=== PATIENT | male | born 1970 | race Caucasian/White ===

== ENCOUNTER → 2017-10-25 09:52 | Outpatient (POV) | payer BC, SELFPAY ==
[2017-10-25 10:00] VITALS: BP 147/99; PULSE 123; RESP 20; BMI 32.1
--- NOTE | 2017-10-25 10:33 | HMH.PAINSOAP ---
[facility] Pain Management SOAP Note Subjective:: Patient is a 46-year-old white male who comes to our clinic to discuss medication refills and upcoming DRG trial. Patient has been in previous pain management with Dr. Vazquez. He has had multiple RFAs in the past with good success. He would like to also discuss having an RFA too. Patient states he cannot take anti-inflammatories due to gastric upset. Patient states the majority of his pain is in his left knee. He is stating also that his back pain has begun to return. Patient rates his pain a 6 out of 10 today. Patient had several questions about the DRG trial. Patient has had psychological evaluation and deemed appropriate for this therapy. Patient has had surgery on the left knee in the past and has completed physical therapy. He is also here to discuss medication refills. Patient states that the medication may not be as effective as it used to. He was wondering if it needed to be changed. Patient still gets 50% relief from his medication at this time. ROS General: no recent weight change, no fever Respiratory: no cough, no shortness of air, no recurring pulmonary infections Cardiovascular/Peripheral Vascular: No chest pain, No palpitations, no edema, no shortness of breath. Gastrointestinal: no incontinence, normal bowel movements reported Genitourinary: no incontinence Musculoskeletal: Lumbar back pain, left knee pain Psychiatric: normal mood/ affect Neurological: [denies weakness in extremities], [denies balance issues] Objective:: Physical Exam General: Alert and oriented x3, no acute distress, pleasant and cooperative, [on room air] Lungs: Resps E/U, Symmetrical chest expansion, Musculoskeletal: Flexion and extension of lumbar spine somewhat guarded secondary to pain, deep tendon reflexes normal, strength in upper and lower extremities [5/5], [abnormal gait noted] Neurological: speech clear, warp tier equal, no gross sensory deficits Assessment:: CRPS type I left knee, 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 After this we can discuss the possibility of an RFA in the future. He has done well with them in the past. Patient did bring up the fact that he feels the pain medication is not as effective as it used to be. I say we would make any medication changes until after his DRG trial. Patient is taking oxycodone 10 mg 1 p.o. 4 times daily. We will give him 1 month refill I discussed this with Dr. Rivas and he has reviewed the chart and feels this is appropriate. We will also send the patient for a urine drug screen today. His last one was negative which was appropriate at the time. Patient's Ama #[id number] reviewed and appropriate. I believe about everything that the DRG will give him more long-term relief of his left knee pain. It will make him more functional. Patient has tried and failed anti-inflammatories, physical therapy, medications. Patient has been prescribed a controlled substance after being counseled on the medication, medication safety, and possible side effects. NATASHA report has been obtained and reviewed prior to prescription and found to be appropriate. Opioid contract was reviewed and signed by the patient, and that they have agreed to all of the terms set forth by our compliance program. Note was dictated using voice recognition software may contain errors or omissions
--- NOTE | 2017-10-25 10:37 | P.CONS_ITS ---
[facility] Pain Management SOAP Note Subjective:: Patient is a 46-year-old white male who comes to our clinic to discuss medication refills and upcoming DRG trial. Patient has been in previous pain management with Dr. Vazquez. He has had multiple RFAs in the past with good success. He would like to also discuss having an RFA too. Patient states he cannot take anti-inflammatories due to gastric upset. Patient states the majority of his pain is in his left knee. He is stating also that his back pain has begun to return. Patient rates his pain a 6 out of 10 today. Patient had several questions about the DRG trial. Patient has had psychological evaluation and deemed appropriate for this therapy. Patient has had surgery on the left knee in the past and has completed physical therapy. He is also here to discuss medication refills. Patient states that the medication may not be as effective as it used to. He was wondering if it needed to be changed. Patient still gets 50% relief from his medication at this time. ROS General: no recent weight change, no fever Respiratory: no cough, no shortness of air, no recurring pulmonary infections Cardiovascular/Peripheral Vascular: No chest pain, No palpitations, no edema, no shortness of breath. Gastrointestinal: no incontinence, normal bowel movements reported Genitourinary: no incontinence Musculoskeletal: Lumbar back pain, left knee pain Psychiatric: normal mood/ affect Neurological: [denies weakness in extremities], [denies balance issues] Objective:: Physical Exam General: Alert and oriented x3, no acute distress, pleasant and cooperative, [ on room air] Lungs: Resps E/U, Symmetrical chest expansion, Musculoskeletal: Flexion and extension of lumbar spine somewhat guarded secondary to pain, deep tendon reflexes normal, strength in upper and lower extremities [5/5], [abnormal gait noted] Neurological: speech clear, inside sales territory manager equal, no gross sensory deficits Assessment:: CRPS type I left knee, 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 After this we can discuss the possibility of an RFA in the future. He has done well with them in the past. Patient did bring up the fact that he feels the pain medication is not as effective as it used to be. I say we would make any medication changes until after his DRG trial. Patient is taking oxycodone 10 mg 1 p.o. 4 times daily. We will give him 1 month refill I discussed this with Dr. Rivas and he has reviewed the chart and feels this is appropriate. We will also send the patient for a urine drug screen today. His last one was negative which was appropriate at the time. Patient's [place] #[id number] reviewed and appropriate. I believe about everything that the DRG will give him more long-term relief of his left knee pain. It will make him more functional. Patient has tried and failed anti-inflammatories, physical therapy, medications. Patient has been prescribed a controlled substance after being counseled on the medication, medication safety, and possible side effects. NATASHA report has been obtained and reviewed prior to prescription and found to be appropriate. Opioid contract was reviewed and signed by the patient, and that they have agreed to all of the terms set forth by our compliance program. Note was dictated using voice recognition software may contain errors or omissions
[2017-10-25 13:27] LABS: Amphetamine/Metha Screen,Urine Negative ng/mL (<1000); Barbiturates Screen,Urine Negative ng/mL (<200); Benzodiazepines Screen,Urine Positive ng/mL (200); Cannabinoid Screen,Urine Negative ng/mL (<50); Cocaine Screen,Urine Negative ng/g (<300); Methadone Screen,Urine Negative ng/mL (<300); Opiate Screen,Urine Positive ng/mL (<300); Phencyclidine Screen,Urine Negative ng/mL (<25)
[2017-10-28 13:12] LABS: Opiates Negative (Cutoff=100); Oxycodone (GC/MS) 5583 ng/mL (Cutoff=100)
[2017-10-29 06:25] LABS: Oxymorphone (GC/MS) 1117 ng/mL (Cutoff=100)
== END ==
PROVIDERS: Family Provider Family Medicine; PCP Family Medicine; Visit Provider Clinical Nurse Specialist Family Health
DX: M25.562 Pain in left knee (principal)
CPT/HCPCS: 99212; 80305; 80361; 80365; G0480

== ENCOUNTER 2017-11-17 10:22 | Day surgery (SDC) | payer BC, SELFPAY ==
[2017-11-16 11:48] VITALS: BMI 34.7
[2017-11-17] VITALS (9 sets, daily range): BP systolic 99–156; BP diastolic 60–95; PULSE 71–92; RESP 16–20; TEMP 36.2–36.6; O2SAT 95–97
[2017-11-17 11:05] LABS: Basophils % 0.4 % (0.1-2.0); Eosinophils # 0.1 K/mm3 (0.0-0.4); Eosinophils % 1.7 % (0.1-12.0); Hematocrit 49.8 % (42.0-52.0); Hemoglobin 16.7 g/dL (14.1-18.0); Lymphocytes # 2.2 K/mm3 (0.7-4.5); Lymphocytes % 31.4 K/mm3 (10-50); Mean Corpuscular HGB Conc 33.5 g/dL (31.8-35.4); Mean Corpuscular Hemoglobin 29.6 pg (27.0-31.2); Mean Corpuscular Volume 88.2 fl (80-94); Mean Platelet Volume 7.3 fl (7.4-10.4); Monocytes # 0.5 K/mm3 (0.1-1.0); Monocytes % 7.4 % (1.7-9.3); Neutrophils # 4.2 K/mm3 (1.8-7.8); Neutrophils % 59.2 % (37.0-80.0); Platelet Count 268 K/mm3 (142-424); Red Blood Count 5.65 M/mm3 (4.60-6.20); Red Cell Distribution Width 13.9 % (11.5-17.5); White Blood Count 7.1 K/mm3 (4.8-10.8)
[2017-11-17 11:12] LABS: Blood Urea Nitrogen 13 mg/dL (7-18); Carbon Dioxide 30 mmol/L (21.0-32.0); Chloride 98 mmol/L (98-107); Creatinine Clearance Estimated 127 mL/min (0-300); Creatinine,Serum 1.15 mg/dL (0.70-1.30); Estimated Glomerular Filt Rate 68 ml/min (>60); GFR (African American) 82 ML/MIN (>60); Glucose 110 mg/dL (74-106); Sodium 138 mmol/L (136-145)
--- NOTE | 2017-11-17 12:29 | P.PN_ITS ---
[facility] Anesthesia Checklist - Patient Identification Patient Identification: Arm Band, Verbal (Name & ) - Structural Data Admitted From: Home Planned Operative Procedure/s: pain pump trial Consent for Planned Operative Procedure(s) Verified: Yes Verified Documents: Surgical Consent - Chart Verification Results Verified: CBC, BMP - Additional verifications Patient : No Anesthesia Reactions: No Hx Blood Transfusions: No Blood Transfusion Reaction: No Cephalosporin Allergy: No Previous Colonoscopy: No - Cardiovascular Assessment Heart Sounds: S1 & S2 Pulse Strength: Baseline Pulse Rhythm: Regular Peripheral Edema: No - Airway Assessment C-Spine Mobility Assessed: Yes TMJ Mobility Assessed: Yes Dentition: Good Dentition - Neurological Assessment Level of Consciousness: Awake, Alert, Appropriate Hx Seizures: No Numbness or tingling in extremities: No - Anesthesia Plan Anesthesia Risk discussed: Yes Anesthesia Plan: Verified ASA Class: II Anesthesia Type: MAC [facility] Anesthesia HX I have reviewed the patient's past medical history: Yes Medical History: Reports:: Anxiety Denies:: Cancer, Diabetes Mellitus Type 1, Diabetes Mellitus Type 2, MRSA, Seizures Other Medical History: Denies: Blood Transfusion Reaction Laterality Cases: Left: Arthroscopy Knee, Total Hip Replacement, Total Knee Replacement Amputation: No Fractures: No *Family Hx:: Coronary Artery Disease, Heart Attack
--- NOTE | 2017-11-17 14:47 | HMH.OPNOTE ---
Date of procedure: 11/17/17 Pre-op Diagnosis:: Complex regional pain syndrome type I of the left knee Post-op Diagnosis:: Same Procedure performed:: Spinal cord stimulator trial with dorsal root ganglion placement at L3 and L4 on the left under fluoroscopy Surgeon:: Ancelmo Rivas MD ASSOCIATE JUSTICE:: Seymour Shipman Anesthesia: MAC Estimated blood loss (mL): 0 Clinical Note:: This patient is a pleasant 46-year-old white male who we are treating for left knee pain with complex regional pain syndrome type I. He had a left total knee replacement approximately 2 years ago. He has had multiple surgeries on his left knee. He developed complex regional pain syndrome type I of his left knee with significant hyperesthesia, allodynia, swelling, increased pain and decreased mobility. He is failed all conservative treatment. He is not a candidate for any further surgery. He has had an appropriate psychological evaluation and presents for spinal cord stimulator trial with dorsal root ganglion stimulation at this time. Operative findings:: None Operative note:: Informed consent was obtained and the risk and benefits of the procedure was explained to the patient. Patient was taken to the procedure room. Patient was placed prone on the procedure table. He was prepped and draped in sterile fashion. C-arm fluoroscopy was used to view the lumbar spine. The skin and subtest tissues were anesthetized using lidocaine. A 17-gauge epidural needle was inserted and advanced into the L4-L5 interspace. After confirmation of needle placement in the epidural space stimulating lead was inserted with sheath and advanced into the left L3 dorsal root ganglion. This was done without complication and very easily. Superior and inferior loops were created and the needle and stylette were withdrawn. A second needle was inserted and advanced into the L5-S1 interspace. After confirmation of needle placement in the epidural space stimulating lead with sheath was inserted and advanced into the left L4 dorsal root ganglion. This was done without complication and very easily. Superior and inferior loops were created and the needle and stylette were then withdrawn. Lead placement was confirmed and AP and lateral views. Leads were secured in place and the patient was taken recovery in stable condition. The lead was programmed with the [facility] small business sales representative. Patient tolerated the procedure well with no complication. We will discharge the patient home. Will follow up with this patient on Wednesday for reprogramming. We will plan on a 1 week trial. Condition: stable Disposition: PACU (Follow-up in 1 week) Complications:: None
--- NOTE | 2017-11-17 14:52 | P.OP_ITS ---
Date of procedure: 11/17/17 Pre-op Diagnosis:: Complex regional pain syndrome type I of the left knee Post-op Diagnosis:: Same Procedure performed:: Spinal cord stimulator trial with dorsal root ganglion placement at L3 and L4 on the left under fluoroscopy Surgeon:: Ancelmo Rivas MD CONSTRUCTION PERSON:: Seymour Shipman Anesthesia: MAC Estimated blood loss (mL): 0 Clinical Note:: This patient is a pleasant 46-year-old white male who we are treating for left knee pain with complex regional pain syndrome type I. He had a left total knee replacement approximately 2 years ago. He has had multiple surgeries on his left knee. He developed complex regional pain syndrome type I of his left knee with significant hyperesthesia, allodynia, swelling, increased pain and decreased mobility. He is failed all conservative treatment. He is not a candidate for any further surgery. He has had an appropriate psychological evaluation and presents for spinal cord stimulator trial with dorsal root ganglion stimulation at this time. Operative findings:: None Operative note:: Informed consent was obtained and the risk and benefits of the procedure was explained to the patient. Patient was taken to the procedure room. Patient was placed prone on the procedure table. He was prepped and draped in sterile fashion. C-arm fluoroscopy was used to view the lumbar spine. The skin and subtest tissues were anesthetized using lidocaine. A 17-gauge epidural needle was inserted and advanced into the L4-L5 interspace. After confirmation of needle placement in the epidural space stimulating lead was inserted with sheath and advanced into the left L3 dorsal root ganglion. This was done without complication and very easily. Superior and inferior loops were created and the needle and stylette were withdrawn. A second needle was inserted and advanced into the L5-S1 interspace. After confirmation of needle placement in the epidural space stimulating lead with sheath was inserted and advanced into the left L4 dorsal root ganglion. This was done without complication and very easily. Superior and inferior loops were created and the needle and stylette were then withdrawn. Lead placement was confirmed and AP and lateral views. Leads were secured in place and the patient was taken recovery in stable condition. The lead was programmed with the [facility] circulation representative. Patient tolerated the procedure well with no complication. We will discharge the patient home. Will follow up with this patient on Wednesday for reprogramming. We will plan on a 1 week trial. Condition: stable Disposition: PACU (Follow-up in 1 week) Complications:: None
== END 2017-11-17 17:06 | disposition home or self-care (01) ==
PROVIDERS: Family Provider Family Medicine; PCP Family Medicine; Visit Provider Anesthesiology
PROC: (CPT 63650; principal; 2017-11-17 12:00)
DX: G90.522 Complex regional pain syndrome I of left lower limb (principal)
CPT/HCPCS: 63650; 80048; 85025; 96374; C1778; J3370

== ENCOUNTER → 2017-11-17 14:37 | Outpatient (POV) | payer BC, SELFPAY ==
--- NOTE | 2017-11-17 14:39 | HMH.PMCON ---
Assessment and Plan - Assessment and plan all Dx Assessment and Plan for all problems:: Impression-CRPS 1 of the left lower extremity, DDD of the lumbar spine with radiculopathy, lumbar facet arthropathy Plan-DRG stimulator trial today. If successful, patient will be scheduled for placement of the system in the future. HPI - Data of Consult Patient: new to practice Consult date: 11/17/17 Requesting Physician: Jonathan Bills MD Primary Care Provider: Tierra Augustin Family Provider: Tierra Augustin - Consult Narrative Reason for consult: Evaluate for placement of DRG for management of CRPS 1 LLE History of present illness: Mr. Cotto is a 47 year old male who has had left lower extremity surgery. Left hip surgery ?2 as well as left knee surgery. He also has degenerative disc disease lumbar spine with radiculopathy as well as lumbar facet arthropathy. He is here today for a DRG stimulation trial. CC: Jonathan Bills MD [facility] History Medical History: Reports:: Anxiety Denies:: Seizures Other Medical History: Denies: Blood Transfusion Reaction Comment: Illnesses-depression, anxiety, posttraumatic stress disease Comment: Operations-left total hip, left hip revision, left total knee - Psychiatric History Pschychiatric History:: Reports:: Anxiety Meds Home Medications Medication Instructions Recorded Confirmed Type Cholecalciferol (Vitamin D3) 50,000 unit PO WEEKLY 10/25/17 11/17/17 History [Vitamin D3 50,000 unit Cap] ALPRAZolam [Xanax 1mg tab] 1 mg PO DAILY 11/16/17 11/17/17 History Kevin-3 Fatty Acids/Fish Oil 1 each PO DAILY 11/16/17 11/17/17 History [Kevin 3 1,000 mg Softgel] Oxycodone HCl/Acetaminophen 1 tab PO QID 11/16/17 11/17/17 History [Percocet 10-325 mg Tab] Sertraline HCl [Zoloft 100mg 200 mg PO DAILY 11/16/17 11/17/17 History tablet] Allergies Allergy/AdvReac Type Severity Reaction Status Date / Time morphine [MORPHINE] Allergy Unknown NA-NAUSEA/V Verified 11/16/17 11:31 OMITING Objective Comments: Healthy-appearing white male in no distress - Routine Chest/Breast/Axilla Exam Comments: Clear - *Routine Cardiovascular Exam Comments: Regular rate and rhythm - *Routine Abdominal Exam Comments: Soft and nontender
--- NOTE | 2017-11-17 14:46 | P.CONS_ITS ---
Assessment and Plan - Assessment and plan all Dx Assessment and Plan for all problems:: Impression-CRPS 1 of the left lower extremity, DDD of the lumbar spine with radiculopathy, lumbar facet arthropathy Plan-DRG stimulator trial today. If successful, patient will be scheduled for placement of the system in the future. HPI - Data of Consult Patient: new to practice Consult date: 11/17/17 Requesting Physician: Jonathan Bills MD Primary Care Provider: Tierra Augustin Family Provider: Tierra Augustin - Consult Narrative Reason for consult: Evaluate for placement of DRG for management of CRPS 1 LLE History of present illness: Mr. Cotto is a 47 year old male who has had left lower extremity surgery. Left hip surgery ?2 as well as left knee surgery. He also has degenerative disc disease lumbar spine with radiculopathy as well as lumbar facet arthropathy. He is here today for a DRG stimulation trial. CC: Jonathan Bills MD [facility] History Medical History: Reports:: Anxiety Denies:: Seizures Other Medical History: Denies: Blood Transfusion Reaction Comment: Illnesses-depression, anxiety, posttraumatic stress disease Comment: Operations-left total hip, left hip revision, left total knee - Psychiatric History Pschychiatric History:: Reports:: Anxiety Meds Home Medications Medication Instructions Recorded Confirmed Type Cholecalciferol (Vitamin D3) 50,000 unit PO WEEKLY 10/25/17 11/17/17 History [Vitamin D3 50,000 unit Cap] ALPRAZolam [Xanax 1mg tab] 1 mg PO DAILY 11/16/17 11/17/17 History [place]-3 Fatty Acids/Fish Oil 1 each PO DAILY 11/16/17 11/17/17 History [[place] 3 1,000 mg Softgel] Oxycodone HCl/Acetaminophen 1 tab PO QID 11/16/17 11/17/17 History [Percocet 10-325 mg Tab] Sertraline HCl [Zoloft 100mg 200 mg PO DAILY 11/16/17 11/17/17 History tablet] Allergies Allergy/AdvReac Type Severity Reaction Status Date / Time morphine [MORPHINE] Allergy Unknown NA-NAUSEA/V Verified 11/16/17 11:31 OMITING Objective Comments: Healthy-appearing white male in no distress - Routine Chest/Breast/Axilla Exam Comments: Clear - *Routine Cardiovascular Exam Comments: Regular rate and rhythm - *Routine Abdominal Exam Comments: Soft and nontender
== END ==
PROVIDERS: Family Provider Family Medicine; PCP Family Medicine; Visit Provider Surgery
DX: G90.522 Complex regional pain syndrome I of left lower limb (principal)
CPT/HCPCS: 99212

== ENCOUNTER → 2017-11-22 15:13 | Outpatient (POV) | payer BC, SELFPAY ==
[2017-11-22 15:26] VITALS: BP 150/101; PULSE 111; RESP 18; O2SAT 94; BMI 34.7
--- NOTE | 2017-11-22 15:52 | HMH.PAINSOAP ---
[facility] Pain Management SOAP Note Subjective:: This patient is a 46-year-old white male who underwent dorsal root ganglion stimulator trial for left knee pain with complex regional pain syndrome type I status post left total knee replacement. He did not get much benefit with DRG stimulation. He did have some decrease in swelling, allodynia and hyperesthesia however overall pain was not significantly reduced. He is to continue his oxycodone 10 mg 4 times a day. He is not due until December 07 for his next prescription. I have talked to him about possible burst DR stimulation that may help his left leg and low back. He is interested in this. We will follow-up with him in 1 month to reassess his symptomatology and possible schedule for a spinal cord stimulator trial with burst DR stimulation. Objective:: Alert and oriented ?3 in no acute distress. Patient does have an antalgic gait. Leads were removed intact. Motor strength of the lower extremities is 5/5. There is no gross sensory deficit. No discoloration of the left knee at this time or swelling. Assessment:: CRPS type I left knee status post total knee replacement Plan:: We will follow-up with him in 1 month. We will reevaluate his symptoms at that time. We will discuss pursuing burst DR stimulation at that time to help with low back and left leg. He is to continue with his oxycodone 10 mg 1 tablet 4 times a day. He can roller picker a prescription on December 07.
--- NOTE | 2017-11-22 15:55 | P.CONS_ITS ---
[facility] Pain Management SOAP Note Subjective:: This patient is a 46-year-old white male who underwent dorsal root ganglion stimulator trial for left knee pain with complex regional pain syndrome type I status post left total knee replacement. He did not get much benefit with DRG stimulation. He did have some decrease in swelling, allodynia and hyperesthesia however overall pain was not significantly reduced. He is to continue his oxycodone 10 mg 4 times a day. He is not due until December 07 for his next prescription. I have talked to him about possible burst DR stimulation that may help his left leg and low back. He is interested in this. We will follow-up with him in 1 month to reassess his symptomatology and possible schedule for a spinal cord stimulator trial with burst DR stimulation. Objective:: Alert and oriented ?3 in no acute distress. Patient does have an antalgic gait. Leads were removed intact. Motor strength of the lower extremities is 5/ 5. There is no gross sensory deficit. No discoloration of the left knee at this time or swelling. Assessment:: CRPS type I left knee status post total knee replacement Plan:: We will follow-up with him in 1 month. We will reevaluate his symptoms at that time. We will discuss pursuing burst DR stimulation at that time to help with low back and left leg. He is to continue with his oxycodone 10 mg 1 tablet 4 times a day. He can scrap picker a prescription on December 07.
== END ==
PROVIDERS: Family Provider Family Medicine; PCP Family Medicine; Visit Provider Anesthesiology
DX: G90.522 Complex regional pain syndrome I of left lower limb (principal)
CPT/HCPCS: 99212

== ENCOUNTER → 2017-12-27 14:45 | Outpatient (POV) | payer BC, SELFPAY ==
[2017-12-27 15:03] VITALS: BP 129/93; PULSE 97; RESP 20; TEMP 36.7; O2SAT 98; BMI 33.5
--- NOTE | 2017-12-27 16:13 | HMH.PAINSOAP ---
[facility] Pain Management SOAP Note Subjective:: Is a 47-year-old white male who underwent a DRG stimulator trial. Patient states he did not have as much relief as he would like. He did have some decrease in swelling, allodynia, hyper esthesia however overall pain was not significantly reduced. Patient and Dr. Rivas discussed potentially using burst stimulation to help with his pain symptoms. Patient states he is uninterested in pursuing that at this time. Patient would like to pursue an RFA. Patient has had these in the past with significant relief. Patient states that he would like to try this first. Patient is also being medically managed with oxycodone 10 mg 1 p.o. 4 times daily. Patient denies any side effects to the medication. Patient's NATASHA #[id number] reviewed and appropriate. ROS General: no recent weight change, no fever, no sleep disturbances Respiratory: no cough, no shortness of air, no recurring pulmonary infections Cardiovascular/Peripheral Vascular: No chest pain, No palpitations, no edema, no shortness of breath. Gastrointestinal: no incontinence, normal bowel movements reported Genitourinary: no incontinence Musculoskeletal: Left leg and knee pain Psychiatric: normal mood/ affect, Neurological: [denies weakness in extremities], [denies balance issues] Objective:: Physical Exam General: Alert and oriented x3, no acute distress, pleasant and cooperative, [on room air] Lungs: Resps E/U, Symmetrical chest expansion, Eyes: PERRL Musculoskeletal: Flexion and extension of left leg somewhat guarded secondary to pain, deep tendon reflexes normal, strength in upper and lower extremities [5/5], [abnormal gait noted] Neurological: speech clear, research geologist equal, no gross sensory deficits Assessment:: 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 Rivas has reviewed this chart and agrees with this plan of care patient's Natasha and urine drug screen both reviewed. We will have the patient pill counted in several weeks to monitor compliance. We will order medial branch blocks at L3-L4 L4-L5 L5-S1 bilaterally. Given the efficacy of his RFA in the past I believe that this may be beneficial. Patient's tried and failed physical therapy, medications, anti-inflammatories. This note was dictated using voice recognition software and may contain errors or omissions
--- NOTE | 2017-12-27 16:16 | P.CONS_ITS ---
[facility] Pain Management SOAP Note Subjective:: Is a 47-year-old white male who underwent a DRG stimulator trial. Patient states he did not have as much relief as he would like. He did have some decrease in swelling, allodynia, hyper esthesia however overall pain was not significantly reduced. Patient and Dr. Rivas discussed potentially using burst stimulation to help with his pain symptoms. Patient states he is uninterested in pursuing that at this time. Patient would like to pursue an RFA. Patient has had these in the past with significant relief. Patient states that he would like to try this first. Patient is also being medically managed with oxycodone 10 mg 1 p.o. 4 times daily. Patient denies any side effects to the medication. Patient's NATASHA #[id number] reviewed and appropriate. ROS General: no recent weight change, no fever, no sleep disturbances Respiratory: no cough, no shortness of air, no recurring pulmonary infections Cardiovascular/Peripheral Vascular: No chest pain, No palpitations, no edema, no shortness of breath. Gastrointestinal: no incontinence, normal bowel movements reported Genitourinary: no incontinence Musculoskeletal: Left leg and knee pain Psychiatric: normal mood/ affect, Neurological: [denies weakness in extremities], [denies balance issues] Objective:: Physical Exam General: Alert and oriented x3, no acute distress, pleasant and cooperative, [ on room air] Lungs: Resps E/U, Symmetrical chest expansion, Eyes: PERRL Musculoskeletal: Flexion and extension of left leg somewhat guarded secondary to pain, deep tendon reflexes normal, strength in upper and lower extremities [5 /5], [abnormal gait noted] 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 Rivas has reviewed this chart and agrees with this plan of care patient 's Natasha and urine drug screen both reviewed. We will have the patient pill counted in several weeks to monitor compliance. We will order medial branch blocks at L3-L4 L4-L5 L5-S1 bilaterally. Given the efficacy of his RFA in the past I believe that this may be beneficial. Patient's tried and failed physical therapy, medications, anti-inflammatories. This note was dictated using voice recognition software and may contain errors or omissions
== END ==
PROVIDERS: Family Provider Family Medicine; PCP Family Medicine; Visit Provider Clinical Nurse Specialist Family Health
DX: G90.522 Complex regional pain syndrome I of left lower limb (principal)
CPT/HCPCS: 99212

== ENCOUNTER → 2018-02-03 15:01 | Outpatient (CLI) | payer BC, SELFPAY ==
[2018-02-03 18:26] LABS: Amphetamine/Metha Screen,Urine Negative ng/mL (<1000); Barbiturates Screen,Urine Negative ng/mL (<200); Benzodiazepines Screen,Urine Positive ng/mL (200); Cannabinoid Screen,Urine Negative ng/mL (<50); Cocaine Screen,Urine Negative ng/g (<300); Methadone Screen,Urine Negative ng/mL (<300); Opiate Screen,Urine Positive ng/mL (<300); Phencyclidine Screen,Urine Negative ng/mL (<25)
[2018-02-13 17:10] LABS: Oxycodone (GC/MS) >3000 ng/mL (Cutoff=100)
[2018-02-13 17:58] LABS: Opiates Negative (Cutoff=100)
== END ==
PROVIDERS: Visit Provider Anesthesiology
DX: Z79.899 Other long term (current) drug therapy (principal)
CPT/HCPCS: 80305; 80361; 80365; G0480

== ENCOUNTER → 2018-02-21 14:08 | Outpatient (POV) | payer BC, SELFPAY ==
[2018-02-21 14:26] VITALS: BP 131/99; PULSE 113; RESP 18; O2SAT 98; BMI 32.8
--- NOTE | 2018-02-22 08:42 | HMH.PAINSOAP ---
[facility] Pain Management SOAP Note Subjective:: Patient is a 47-year-old white male who presents today for follow-up. Patient underwent a DRG stimulator trial however he did not have as much relief as he would like. Patient did have some decrease in swelling, allodynia and hyperesthesia however overall pain was not significantly reduced. Patient is uninterested in pursuing any other stimulation therapy at this time. Patient would like to pursue an RFA. Patient has had good relief of his axial back pain in the past. Patient states that he had 2 years relief of axial back pain with this procedure. Patient is being managed on oxycodone 10 mg 1 p.o. 4 times daily. Patient's NATASHA #[id number] reviewed. ROS General: no recent weight change, no fever, no sleep disturbances Respiratory: no cough, no shortness of air, no recurring pulmonary infections Cardiovascular/Peripheral Vascular: No chest pain, No palpitations, no edema, no shortness of breath. Gastrointestinal: no incontinence, normal bowel movements reported Genitourinary: no incontinence Musculoskeletal: Back pain, knee pain Psychiatric: normal mood/ affect Neurological: [denies weakness in extremities], [denies balance issues] Objective:: Physical Exam General: Alert and oriented x3, no acute distress, pleasant and cooperative, [on room air] Lungs: Resps E/U, Symmetrical chest expansion, Eyes: PERRL Musculoskeletal: Flexion and extension of lumbar spine somewhat guarded secondary to pain, deep tendon reflexes normal, strength in upper and lower extremities [5/5], antalgic gait noted, positive Kemps test of the lumbar spine 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 Patient failed pill count by 8-14 pills depending on what time he picked up his medication. Patient states that his dog knocked over his pills into the sink. I discussed that with the patient that we would no longer be able to write him any kind of controlled substances. We will give him 1 month of medication and this will be the last that he received from us. Oxycodone 10 mg 1 p.o. 4 times daily. Of note his urine drug screen did show positive for benzodiazepines however on his Natasha he has not been prescribed these. We will be unable to continue medically managing the patient. Dr. Rivas has reviewed this chart and agrees with this plan of care. Patient would like to pursue an RFA. I believe we will have to get medial branch blocks prior to this. So we will order medial branch blocks at L3-L4 L4-L5 L5-S1 bilaterally. I believe that this may be beneficial. Patient's tried and failed physical therapy, medications, anti-inflammatories. Patient did want to discuss marijuana use for pain control I told him that I cannot promote that due to the legal status of marijuana. This note was dictated using voice recognition software and may contain errors or omissions
--- NOTE | 2018-02-22 08:46 | P.CONS_ITS ---
[facility] Pain Management SOAP Note Subjective:: Patient is a 47-year-old white male who presents today for follow-up. Patient underwent a DRG stimulator trial however he did not have as much relief as he would like. Patient did have some decrease in swelling, allodynia and hyperesthesia however overall pain was not significantly reduced. Patient is uninterested in pursuing any other stimulation therapy at this time. Patient would like to pursue an RFA. Patient has had good relief of his axial back pain in the past. Patient states that he had 2 years relief of axial back pain with this procedure. Patient is being managed on oxycodone 10 mg 1 p.o. 4 times daily. Patient's NATASHA #[id number] reviewed. ROS General: no recent weight change, no fever, no sleep disturbances Respiratory: no cough, no shortness of air, no recurring pulmonary infections Cardiovascular/Peripheral Vascular: No chest pain, No palpitations, no edema, no shortness of breath. Gastrointestinal: no incontinence, normal bowel movements reported Genitourinary: no incontinence Musculoskeletal: Back pain, knee pain Psychiatric: normal mood/ affect Neurological: [denies weakness in extremities], [denies balance issues] Objective:: Physical Exam General: Alert and oriented x3, no acute distress, pleasant and cooperative, [ on room air] Lungs: Resps E/U, Symmetrical chest expansion, Eyes: PERRL Musculoskeletal: Flexion and extension of lumbar spine somewhat guarded secondary to pain, deep tendon reflexes normal, strength in upper and lower extremities [5/5], antalgic gait noted, positive Kemps test of the lumbar spine Neurological: 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 Patient failed pill count by 8- 14 pills depending on what time he picked up his medication. Patient states that his dog knocked over his pills into the sink. I discussed that with the patient that we would no longer be able to write him any kind of controlled substances. We will give him 1 month of medication and this will be the last that he received from us. Oxycodone 10 mg 1 p.o. 4 times daily. Of note his urine drug screen did show positive for benzodiazepines however on his Natasha he has not been prescribed these. We will be unable to continue medically managing the patient. Dr. Rivas has reviewed this chart and agrees with this plan of care. Patient would like to pursue an RFA. I believe we will have to get medial branch blocks prior to this. So we will order medial branch blocks at L3-L4 L4-L5 L5-S1 bilaterally. I believe that this may be beneficial. Patient's tried and failed physical therapy, medications, anti-inflammatories. Patient did want to discuss marijuana use for pain control I told him that I cannot promote that due to the legal status of marijuana. This note was dictated using voice recognition software and may contain errors or omissions
== END ==
PROVIDERS: Family Provider Family Medicine; PCP Family Medicine; Visit Provider Clinical Nurse Specialist Family Health
DX: M51.36 Other intervertebral disc degeneration, lumbar region (principal); G90.522 Complex regional pain syndrome I of left lower limb
CPT/HCPCS: 99212

== ENCOUNTER → 2018-05-23 11:05 | Outpatient (POV) | payer BC, SELFPAY ==
[2018-05-23 11:20] VITALS: BP 145/79; PULSE 88; RESP 18; O2SAT 94; BMI 33.5
--- NOTE | 2018-05-23 11:38 | HMH.PAINSOAP ---
[facility] Pain Management SOAP Note Subjective:: Patient is a 47-year-old white male who presents today after his L3-L4 L4-L5 L5-S1 lumbar medial branch block. Patient states he had 80% relief after the injection for several days. She has had an RFA in the past and has done extremely well getting 2 years of relief. He states most of his pain is back today rating it about a 7 out of 10. Patient was previously on oxycodone 10 mg 4 times a day however he felt a pill count so we are unable to prescribe him oral narcotics. Patient is asking today for medication for a vacation. Patient understands that we cannot facilitate this. Patient is continuing a home stretching program. Patient's not on any anticoagulation therapy. Patient would like to repeat the medial branch block eventually do another RFA. ROS General: no recent weight change, no fever, no sleep disturbances Respiratory: no cough, no shortness of air, no recurring pulmonary infections Cardiovascular/Peripheral Vascular: No chest pain, No palpitations, no edema, no shortness of breath. Gastrointestinal: no incontinence, normal bowel movements reported Genitourinary: no incontinence Musculoskeletal: Back pain Psychiatric: normal mood/ affect Neurological: [denies weakness in extremities], [denies balance issues] Objective:: Physical Exam General: Alert and oriented x3, no acute distress, pleasant and cooperative, [on room air] Lungs: Resps E/U, Symmetrical chest expansion, Eyes: PERRL Musculoskeletal: Flexion and extension of lumbar spine somewhat guarded secondary to pain, deep tendon reflexes normal, strength in upper and lower extremities [5/5], [abnormal gait noted] positive facet loading bilaterally lumbar spine 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 Patient has done well with these in the past. I will follow-up with the patient after his injection. again we are not having any oral narcotics to this patient. Patient is requesting this today and I have discussed that we will never be able to prescribe him medication. This note was dictated using voice recognition software and may contain errors or omissions
== END ==
PROVIDERS: Family Provider Family Medicine; PCP Family Medicine; Visit Provider Clinical Nurse Specialist Family Health
DX: M51.36 Other intervertebral disc degeneration, lumbar region (principal); M47.896 Other spondylosis, lumbar region; M54.06 Panniculitis affecting regions of neck and back, lumbar region
CPT/HCPCS: 99213

== ENCOUNTER → 2018-08-02 11:26 | Outpatient (POV) | payer BC, SELFPAY ==
[2018-08-02 11:40] VITALS: BP 128/95; PULSE 93; RESP 18; O2SAT 98; BMI 30.7
--- NOTE | 2018-08-02 12:02 | HMH.PAINSOAP ---
[facility] Pain Management SOAP Note Subjective:: Patient is a 47-year-old white male who presents today for follow-up after his lumbar medial branch block patient states he got 80% relief of his symptoms for several weeks. Patient is in excruciating pain today. Patient failed the pain pill count. Patient states that he dropped all the pills on the floor and he flushed them toilet. Patient is in the process of getting approved for RFA. Patient has had this in the past and got up to 5 years relief. Patient is interested in pursuing this. Patient also interested in going to a pain clinic closer to him. He rates his pain a 9 out of 10 ROS General: no recent weight change, no fever, no sleep disturbances Respiratory: no cough, no shortness of air, no recurring pulmonary infections Cardiovascular/Peripheral Vascular: No chest pain, No palpitations, no edema, no shortness of breath. Gastrointestinal: no incontinence, normal bowel movements reported Genitourinary: no incontinence Musculoskeletal: Back pain, knee pain Psychiatric: normal mood/ affect Neurological: [denies weakness in extremities], [denies balance issues] Objective:: Physical Exam General: Alert and oriented x3, no acute distress, pleasant and cooperative, [on room air] Lungs: Resps E/U, Symmetrical chest expansion, Eyes: PERRL Musculoskeletal: Flexion and extension of lumbar spine somewhat guarded secondary to pain, deep tendon reflexes normal, strength in upper and lower extremities [5/5], [abnormal gait noted] positive Kemps test lumbar spine bilaterally 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 Bautista and see if we can get him approved for an RFA at his location and seen in that area. Patient is going to see his primary care physician today if possible. If we cannot get him approved for visit with Dr. Ramirez's we will schedule him for an RFA here. This note was dictated using voice recognition software and may contain errors or omissions
== END ==
PROVIDERS: PCP Family Medicine; Visit Provider Clinical Nurse Specialist Family Health
DX: M47.896 Other spondylosis, lumbar region (principal); M51.36 Other intervertebral disc degeneration, lumbar region; M54.06 Panniculitis affecting regions of neck and back, lumbar region
CPT/HCPCS: 99213